=== PATIENT | male | born 1975 | race Caucasian/White ===

== ENCOUNTER 2016-12-04 13:38 | Inpatient (IN) | payer OTHER | END 2017-01-01 10:26 | disposition home or self-care (01) | DRG 895 | DX: F10.20 Alcohol dependence, uncomplicated (principal); F12.21 Cannabis dependence, in remission; F15.21 Other stimulant dependence, in remission; F17.210 Nicotine dependence, cigarettes, uncomplicated; G40.909 Epilepsy, unspecified, not intractable, without status epilepticus; Z81.1 Family history of alcohol abuse and dependence ==